=== PATIENT | female | born 1960 | race Caucasian/White ===

== ENCOUNTER 2025-07-19 11:15 | Emergency (ER) | payer MEDICARE, OTHER ==
[~2025-07-19] VITALS: Ht 162.6 cm; Wt 78.9 kg
[2025-07-19 11:19] VITALS: TEMP 97.2
--- NOTE | 2025-07-19 11:35 | Physician Documentation ---
History of Present Illness ~ Chief Complaint: Mechanical Fall Stated Complaint: WRIST PAIN Time Seen by MD: 11:28 HPI 65-year-old female right-hand dominant with known past medical history of osteopenia presents to the emergency department with a fall on outstretched hand two days ago. Has pain to the left distal radius. There was no gross deformity. She is grossly neurologically intact radial median ulnar nerve. Tenderness to the left distal radius. No pain or restricted range of motion to the elbow. Medication Reconciliation Allergies: Coded Allergies: No Known Allergies (Unverified , 07/19/25) Review of Systems All Other Systems at this time: Reviewed and Negative Constitutional: Reports: see HPI Physical Exam Vital Signs: RN Vital Signs have been reviewed: Yes, Temperature: 97.2, Heart Rate: 85, Respiratory Rate: 18, BP: 149/81, Pulse Oximetry: 98, Weight: 78.900 Oxygen Flow Rate: 0 General Appearance: alert, WD/WN, mild distress Head: no evidence of injury Face: normal Eye Lid: normal inspection Pupils/EOM/Fundus: PERRLA Neck: non-tender Respiratory: no respiratory distress Cardiovascular: normal peripheral pulses Gastrointestinal: non-tender Extremities Tenderness to palpation over the left distal radius. Strong radial ulnar pulses. Negative Shuck sign Skin: warm/dry Neurologic: oriented x4 Motor / Sensory: no motor deficit, no sensory deficit Best Eye Response: (4) open spontaneously Best Verbal Response: (5) oriented Best Motor Response: (6) obeys commands Progress Results/Orders Results/Orders Vital Signs 07/19/25 07/19/25 07/19/25 11:19 11:53 12:14 Temp 97.2 Pulse 85 84 Resp 18 16 16 B/P (MAP) 149/81 125/74 Pulse Ox 98 98 O2 Flow Rate 0 Medical Decision Making Additional information obtaine: N/A Findings Examination and history consistent with a 65-year-old female with osteopenia who fell on outstretched hand. X-ray imaging of the bedside preliminary without obvious fracture or dislocation. Patient to remain in her Velcro splint and follow up with the primary care physician for re-evaluation referred to the orthopedist for definitive management. Discharged in the emergency department grossly neurologically intact radial median ulnar nerve in her velcro splint. Differential Dx:Considerations: Include: Closed head injury, Cardiac injury, Fracture(s), Intraabdominal injury, Pneumothorax, Cerebral contusion, Pulmonary contusion, Spine injury, Tracheal injury, Urological injury, Vascular injury, Abrasion(s), Contusion(s), Foreign body(s), Hematoma(s), Laceration(s), Encephalopathy, Other Departure Disposition: HOME / SELF CARE / HOMELESS Impression: Primary Impression: Left wrist injury Qualified Codes: S69.92XA - Unspecified injury of left wrist, hand and finger(s), initial encounter Condition: Improved Discharge Instructions: Wrist Sprain, Adult Additional Instructions: Your x-rays obtained in the emergency department preliminary are reassuring for no obvious fracture. Please wear your Velcro splint for comfort and support make follow up appointment with your primary care physician for orthopedic referral. Thank you for visiting emergency department [facility]. Please take ibuprofen and/or Tylenol for discomfort. Referrals: NO PRIMARY CARE PROVIDER (PCP) VIDYA ESCAMILLA MD 1 week 65-year-old right-hand dominant female fall on outstretched hand injuring the left wrist. No obvious fractures on prelim x-ray. Please evaluate for occult fracture. Thank you [facility] ED Education Educated: Patient Educated regarding: diagnosis, treatment, prognosis, need for follow up Signature Scribe Signature: . Attestation: . LINDEN ROMERO PAC Jul 19, 2025 11:35
--- NOTE | 2025-07-19 11:55 | RADIOLOGY REPORT ---
INDICATION: WRIST PAIN TECHNIQUE: 3 radiographic views of the left hand were obtained. COMPARISON: None FINDINGS/IMPRESSION: No acute fracture or dislocations. 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 moderate soft tissue edema about the wrist. No radiographic foreign body.
[2025-07-19 12:14] VITALS: BP 125/74; PULSE 84; RESP 16; O2SAT 98
== END 2025-07-19 12:15 | disposition home or self-care (01) ==
LOC: ER 11:17
DX: S69.92XA Unspecified injury of left wrist, hand and finger(s), initial encounter (principal); W18.39XA Other fall on same level, initial encounter; Y93.89 Activity, other specified; Y92.89 Other specified places as the place of occurrence of the external cause; Y99.8 Other external cause status
CPT/HCPCS: 73110; 99283